=== PATIENT | male | born 1965 | race Caucasian/White ===

== ENCOUNTER 2021-09-07 08:28 | Emergency (ER) | payer MEDICAID ==
[~2021-09-07] VITALS: Ht 182.9 cm; Wt 93.6 kg
[2021-09-07 08:38] VITALS: BP 125/78
[2021-09-07] MEDS ORDERED: CLIN150C2 PO (09:08)
== END 2021-09-07 09:23 | disposition home or self-care (01) ==
LOC: ER 08:29
DX: M27.3 Alveolitis of jaws (principal)
CPT/HCPCS: 99283

== ENCOUNTER 2024-02-15 15:50 | Outpatient (CLI) | payer MEDICAID | END 2024-02-15 23:59 | disposition home or self-care (01) | LOC: RAD 15:50 | PROVIDERS: ATTEND Physician Assistant | DX: S39.012A Strain of muscle, fascia and tendon of lower back, initial encounter (principal); M43.17 Spondylolisthesis, lumbosacral region; M47.816 Spondylosis without myelopathy or radiculopathy, lumbar region; M48.061 Spinal stenosis, lumbar region without neurogenic claudication; X58.XXXA Exposure to other specified factors, initial encounter; Y93.89 Activity, other specified; Y92.89 Other specified places as the place of occurrence of the external cause; Y99.8 Other external cause status | CPT/HCPCS: 72110 ==